=== PATIENT | male | born 1960 | race American Indian/Alaskan Native ===

== ENCOUNTER 2017-09-25 23:23 | Emergency (ER) | payer MEDICAID, OTHER ==
[2017-09-25 23:29] VITALS: BP 131/86; RESP 18; TEMP 98.5; O2SAT 98
[2017-09-25] MEDS ORDERED: Phenytoin 100 mg/2 ml Inj IV STA (23:41)
--- NOTE | 2017-09-26 00:34 | ED PDOC ---
HPI: Seizure Time Seen by Provider: 09/25/17 23:34 Chief Complaint (Nursing): Seizure History Per: Patient History/Exam Limitations: no limitations Recent Seizure Activity Began: Just Before Arrival Number Of Seizures: One Precipitating Factor(s): Missed Dose Of Anti-seizure Medication Additional Complaint(s): Hx of drug abuse and seizure d/o p/w seizure, states he was sitting on a bench and had a seizure. States is supposed to be taking dilantin 100mg but has not taken it in 3 weeks. Denies drug/alcohol use today. States he has a HAY, mild, but denies hitting his head. Past Medical History Vital Signs: Last Vital Signs Temp 98.5 F 09/25/17 23:28 Pulse 106 H 09/25/17 23:28 Resp 18 09/25/17 23:28 BP 131/86 09/25/17 23:28 Pulse Ox 98 09/26/17 00:34 - Medical History PMH: Hepatitis, Seizures (last use of dilantin 2 weeks ago) Denies: Diabetes, HIV, HTN, Sexually Transmitted Disease - Family History Family History: States: Unknown Family Hx - Immunization History Hx Tetanus Toxoid Vaccination: Yes Hx Influenza Vaccination: Yes Hx Pneumococcal Vaccination: No - Home Medications Home Medications: Ambulatory Orders Medication Instructions Recorded Phenytoin, Extended [Dilantin 100 mg PO BID 09/21/17 [place]] Phenytoin, Extended [Dilantin 100 mg PO BID #20 cer 09/26/17 [facility]] - Allergies Allergies/Adverse Reactions: Allergies Allergy/AdvReac Type Severity Reaction Status Date / Time No Known Allergies Allergy Verified 09/21/17 00:45 Review of Systems ROS Statement: Except As Marked, All Systems Reviewed And Found Negative Neurological: Positive for: Seizures, Headache Physical Exam - Reviewed Nursing Documentation Reviewed: Yes Vital Signs Reviewed: Yes - Physical Exam Appears: Positive for: Non-toxic, No Acute Distress. Negative for: Well ( disheveled) Head Exam: Positive for: ATRAUMATIC, NORMAL INSPECTION, NORMOCEPHALIC Skin: Positive for: Normal Color, Warm, DRY Eye Exam: Positive for: EOMI, Normal appearance, PERRL ENT: Positive for: Normal ENT Inspection Neck: Positive for: Normal, Painless ROM Cardiovascular/Chest: Positive for: Regular Rate, Rhythm Respiratory: Positive for: CNT, Normal Breath Sounds Gastrointestinal/Abdominal: Positive for: Normal Exam, Bowel Sounds, Soft Back: Positive for: Normal Inspection Extremity: Positive for: Normal ROM Neurologic/Psych: Positive for: Alert, meal cooker II-XII, Oriented. Negative for: Motor/Sensory Deficits, Cerebellar Tests (normal), Gait (normal), Aphasia, Facial Droop - Laboratory Results Result Diagrams: 09/26/17 01:25 09/26/17 01:25 - ECG O2 Sat by Pulse Oximetry: 98 Medical Decision Making Medical Decision Making: PT. w/ seizure d/o p/w seizure likley in setting of medication noncompliance. Will load with dilantin, check labs, and observe for further seizure activity. 630 Pt. observed in ER for 7 hours without seizure activity. Loaded with dilantin. Will give prescription for dilantin to avoid repeat seizures. Will d/c home. Retur precautions discussed. HR 99. Disposition - Clinical Impression Clinical Impression: Seizure disorder - Patient ED Disposition Is Patient to be Admitted: No - Disposition Referrals: Girish Barbosa MD [Medical Doctor] - Disposition: Routine/Home Disposition Time: 06:31 Condition: IMPROVED Prescriptions: Phenytoin, Extended [Dilantin [place]apseals] 100 mg PO BID #20 cer Instructions: Seizures, Adult (DC) Forms: [employer] (Montenegrin)
[2017-09-26] MEDS ORDERED: Phenytoin 100 mg/2 ml Inj ONE (01:16)
[2017-09-26] MEDS: Lactated Ringer's 1,000 ML IV SCH ×4 (01:27→03:35)
[2017-09-26 01:28] LABS: BASO % 0.5 % (0.0-2.0); EOS % 0.2 % (0.0-4.0); HEMOGLOBIN 13.9 g/dL (12.0-18.0); LYMPH % 11.9 % (20.0-40.0); MEAN CORPUSCULAR HEMOGLOBIN 31.1 pg (27.0-31.0); MEAN CORPUSCULAR HGB CONC 33.4 g/dL (33.0-37.0); MEAN PLATELET VOLUME 7.7 fl (7.2-11.7); MONO # 1.1 K/uL (0.0-0.8); MONO % 13.1 % (0.0-10.0); NEUT # 6.4 K/uL (1.8-7.0); NEUT % 74.3 % (50.0-75.0); NRBC % 0.4 % (0.0-0.0); RBC 4.47 Mil/uL (4.40-5.90); RED CELL DISTRIBUTION WIDTH 12.3 % (11.5-14.5); WHITE BLOOD COUNT 8.6 K/uL (4.8-10.8)
[2017-09-26 01:42] LABS: BLOOD UREA NITROGEN 7 mg/dl (9-20); CALCIUM 8.8 mg/dL (8.4-10.2); GFR AFRICAN-AMERICAN > 60; GFR NON-AFRICAN AMERICAN > 60
[2017-09-26 04:39] LABS: URINE BACTERIA RARE (<OCC); URINE BILIRUBIN NEGATIVE (NEGATIVE); URINE BLOOD NEGATIVE (NEGATIVE); URINE CLARITY SLIGHTY-CLOUDY (Clear); URINE COLOR YELLOW (YELLOW); URINE GLUCOSE (UA) NEG (Normal); URINE LEUKOCYTE ESTERASE NEG Leu/uL (Negative); URINE NITRATE NEGATIVE (NEGATIVE); URINE PROTEIN NEGATIVE (NEGATIVE)
[2017-09-26 04:57] LABS: BARBITURATES, UR NEGATIVE (NEGATIVE); BENZODIAZEPINES, UR POSITIVE (NEGATIVE); OPIATES, UR POSITIVE (NEGATIVE); PHENCYCLIDINE, UR NEGATIVE (NEGATIVE)
[2017-09-26 06:38] VITALS: PULSE 97
[2017-09-28 21:01] LABS: PHENYTOIN,FREE <0.5 mg/L (1.0-2.0)
== END 2017-09-26 06:35 | disposition home or self-care (01) ==
LOC: H.ER 23:23
DX: G40.909 Epilepsy, unspecified, not intractable, without status epilepticus (principal); B19.9 Unspecified viral hepatitis without hepatic coma
CPT/HCPCS: 80048; 80186; 80324; 80345; 80346; 80349; 80353; 80358; 80361; 81003; 82948; 83992; 85025; 96374; 99285; J1165; J7120

== ENCOUNTER 2018-11-16 22:57 | Emergency (ER) | payer SELFPAY ==
[2018-11-16] MEDS ORDERED: Permethrin 1% Kit 59 ML BOTTLE TOP STA (23:05)
--- NOTE | 2018-11-16 23:28 | ED PDOC ---
HPI: Psych/Substance Abuse Time Seen by Provider: 11/16/18 23:26 Chief Complaint (Nursing): Substance Abuse Chief Complaint (Provider): substance abuse History Per: EMS History/Exam Limitations: intoxication Onset/Duration Of Symptoms: Hrs Current Symptoms Are (Timing): Still Present Suicide/Self Injury Attempted (Context): None Modifying Factor(s): Alcohol Severity: Moderate Additional History Per: EMS Additional Complaint(s): 56 y/o male with history of substance abuse presents to the ED with ems after patient was found intoxicated sleeping on the light rail. Patient has known history of alcohol use and has been to ED many times for same. Additionally patient states he feels itchy and has body lice. Patient denies Nausea, vomiting, fever, sob. No denies any other medical complaints. Past Medical History Reviewed: Historical Data, Nursing Documentation, Vital Signs GRANT Report Viewed: Yes - Family History Family History: States: Unknown Family Hx - Social History Alcohol: > 2 Drinks/Day - Allergies Allergies/Adverse Reactions: Allergies Allergy/AdvReac Type Severity Reaction Status Date / Time No Known Allergies Allergy Verified 11/16/18 23:02 Review of Systems ROS Statement: Except As Marked, All Systems Reviewed And Found Negative Constitutional: Negative for: Fever, Chills, Sweats, Weakness, Malaise Physical Exam - Reviewed Nursing Documentation Reviewed: Yes Vital Signs Reviewed: Yes - Physical Exam Appears: Positive for: Well, Non-toxic, No Acute Distress Head Exam: Positive for: ATRAUMATIC, NORMAL INSPECTION, NORMOCEPHALIC Skin: Positive for: Normal Color, Warm, Rash (upper back, patient states has been itchy. open lesions. ) Eye Exam: Positive for: EOMI, Normal appearance, PERRL ENT: Positive for: Normal ENT Inspection Neck: Positive for: Normal, Painless ROM Cardiovascular/Chest: Positive for: Regular Rate, Rhythm Respiratory: Positive for: CNT, Normal Breath Sounds Gastrointestinal/Abdominal: Positive for: Normal Exam, Soft Back: Positive for: Normal Inspection Extremity: Positive for: Normal ROM Neurological/Psych: Positive for: Awake, Alert, Normal Tone, Oriented, Gait (unsteady), freight and passenger agent II-XII (intact) Medical Decision Making Medical Decision Making: -permetherin alcohol accucheck 00:00 Patient endorsed to Marc Thompson pa-c, patient pending sobriety for d/c. Disposition - Clinical Impression Clinical Impression: Alcohol abuse - Patient ED Disposition Is Patient to be Admitted: Transfer of Care - Disposition Disposition: Transfer of Care Disposition Time: 00:00 Condition: GOOD Instructions: Alcohol Abuse and Alcoholism (DC) Patient Signed Over To: Marc Gil Handoff Comments: pending sobriety - POA Present On Arrival: None
--- NOTE | 2018-11-17 00:30 | ED PDOC ---
Medical Decision Making Medical Decision Makin pt endorsed to me by Aakash YOUNG, pending sobriety and dispo 0300 on re eval pt is sleeping, easily arousable, A&Ox3, normal steady gait, pt is actively itching, pt was deconed and treated for lice, pt reports he is homeless and takes the trains to get places, his girlfriend is bedside who reports she stays in shelters and they take the trains to them, but trains are not running now 0330 pt continues to be well appearing, steady gait, alert and oriented x3, pt is stable for dc discussed diagnosis, treatment, return precautions and f/u with pt who is understanding, in agreement and stable for dc Disposition Counseled Patient/Family Regarding: Studies Performed, Diagnosis, Need For Followup - Clinical Impression Clinical Impression: Alcohol abuse, Rash and nonspecific skin eruption - POA Present On Arrival: None - Disposition Referrals: [facility] [Outside] Disposition: Routine/Home Disposition Time: 03:34 Condition: STABLE Additional Instructions: Thank you for letting us take care of you today. You were treated for alcohol abuse and a rash. The emergency medical care you received today was directed at your acute symptoms. If you were prescribed any medication, please fill it and take as directed. It may take several days for your symptoms to resolve. Return to the Emergency Department if your symptoms worsen, do not improve, or if you have any other problems. Please contact your doctor in 2 days for re-evaluation and follow up / or call one of the physicians/clinics you have been referred to that are listed on the Patient Visit Information form that is included in your discharge packet. Bring any paperwork you were given at discharge with you along with any medications you are taking to your follow up visit. Our treatment cannot replace ongoing medical care by a primary care provider (PCP) outside of the emergency department. Instructions: Skin Rash, Alcohol Abuse and Alcoholism (DC), Effects of Alcohol on Your Health Print Language: [place]
[2018-11-17 00:31] VITALS: BP 132/80; PULSE 99; RESP 17; TEMP 98.3; O2SAT 97
== END 2018-11-17 05:49 | disposition home or self-care (01) ==
LOC: MERGE 22:57 → H.ER 22:57
DX: F10.10 Alcohol abuse, uncomplicated (principal); R21 Rash and other nonspecific skin eruption
CPT/HCPCS: 82948; 99283; G0480